=== PATIENT | female | born 1965 | race Two or more races ===

== ENCOUNTER 2019-04-10 17:10 | Emergency (ER) | payer MEDICAID ==
[~2019-04-10] VITALS: Ht 154.9 cm; Wt 122.0 kg
[2019-04-11 00:38] VITALS: BP 168/67
== END 2019-04-11 00:41 | disposition home or self-care (01) ==
LOC: ER 17:10
DX: M54.2 Cervicalgia (principal); R53.83 Other fatigue; R53.81 Other malaise
CPT/HCPCS: 72125

== ENCOUNTER 2021-09-15 03:13 | Emergency (ER) | payer MEDICAID ==
[~2021-09-15] VITALS: Ht 152.4 cm; Wt 117.9 kg
[2021-09-15 03:40] LABS: Basophils # (auto) 0.1 10 ^3/uL (0-0.2); Basophils % (auto) 0.9 % (0.0-2.0); Eosinophils # (auto) 0.2 10 ^3/uL (0-0.8); Eosinophils % (auto) 2.7 % (0.0-7.0); Hematocrit 39.1 % (36.0-46.0); Hemoglobin 13.3 g/dL (12.2-16.2); Lymphocytes # (auto) 1.9 10 ^3/uL (0.4-5.4); Lymphocytes % (auto) 30.7 % (10.0-50.0); Mean Corpuscular Hemoglobin 30.6 pg (28.0-32.0); Mean Corpuscular Hgb Conc. 33.9 g/dL (32.0-36.0); Mean Corpuscular Volume 90.4 fL (80.0-100.0); Monocytes # (auto) 0.5 10 ^3/uL (0-1.3); Monocytes % (auto) 8.2 % (0.0-12.0); Neutrophils # (auto) 3.6 10 ^3/uL (1.6-8.6); Neutrophils % (auto) 57.5 % (37.0-80.0); Nucleated Red Blood Cells % 0.1 %; Red Blood Cells 4.33 10^6/uL (4.0-5.20); Red Cell Distribution Width 14.8 % (11.8-14.3); White Blood Cell 6.3 10^3/uL (4.4-10.8)
[2021-09-15 03:57] LABS: Albumin 3.4 g/dL (3.4-5.0); BUN/Creatinine Ratio 17.6; Calcium 8.9 mg/dL (8.5-10.1); Magnesium 2.3 mg/dL (1.6-2.6); Potassium 3.9 mmol/L (3.5-5.1)
[2021-09-15 04:00] LABS: Bilirubin, Total 0.2 mg/dL (0.2-1.0); Total Protein 6.9 g/dL (6.4-8.2)
[2021-09-15 09:41] LABS: Urine Bacteria NONE SEEN /hpf (None Seen); Urine Blood Negative /uL (Negative); Urine Specific Gravity 1.009 (1.001-1.035); Urine WBC <1 /hpf (0 - 5)
[2021-09-15 13:46] VITALS: BP 132/62
[2021-09-15] MEDS ORDERED: MAGNSUS48 PO (15:05)
== END 2021-09-15 15:14 | disposition home or self-care (01) ==
LOC: ER 03:13
DX: K59.01 Slow transit constipation (principal); E66.01 Morbid (severe) obesity due to excess calories; Z68.43 Body mass index [BMI] 50.0-59.9, adult
CPT/HCPCS: 36415; 74176; 80053; 81001; 83690; 83735; 84484; 85025; 93005